=== PATIENT | female | born 1950 | race Caucasian/White ===

== ENCOUNTER 2016-11-10 08:38 | Day surgery (SDC) | payer MEDICARE, OTHER ==
[~2016-11-10] VITALS: Ht 157.5 cm; Wt 98.9 kg
--- NOTE | ~2016-11-10 | OP ---
Record Of Operation [facility] [address] 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 PROCEDURE: Botox injection of the anal sphincter muscle. DESCRIPTION OF PROCEDURE: The patient was taken to the endoscopy suite and positioned in the left lateral decubitus position. Informed consent was obtained followed by IV sedation delivered by STEM SHAPER. Viscous lidocaine was used for digital rectal exam and then the right anal verge was cleansed using alcohol swab. 0.5 mL which is 50 units of Botox were injected into the intersphincteric groove in a fanning motion on the right side and then this was repeated on the left. The patient was cleaned and dried followed by two 4x4s. She tolerated the procedure well. TOSHIA/KHURRAM Nargis Gaona M.D. / [id number] CC: Herbie Arias TYE
[~2016-11-10 08:38] MED LIST: PROTONIX PO
== END 2016-11-10 23:59 | disposition home health service (06) ==
LOC: DMU 08:38
PROVIDERS: Surgery
PROC: 3E023GC Introduction of Other Therapeutic Substance into Muscle, Percutaneous Approach (ICD-10-PCS; principal; 2016-11-10 12:00)
DX: K60.1 Chronic anal fissure (principal); E11.9 Type 2 diabetes mellitus without complications; E66.9 Obesity, unspecified; K21.9 Gastro-esophageal reflux disease without esophagitis; Z88.5 Allergy status to narcotic agent; Z88.8 Allergy status to other drugs, medicaments and biological substances; Z79.899 Other long term (current) drug therapy; Z90.710 Acquired absence of both cervix and uterus; Z98.41 Cataract extraction status, right eye; Z98.42 Cataract extraction status, left eye; Z98.890 Other specified postprocedural states
CPT/HCPCS: 82962; J0585